=== PATIENT | female | born 1960 | race Caucasian/White ===

== ENCOUNTER → 2017-09-11 | Outpatient (CLI) | payer OTHER | LOC: M RAD 09:40 | DX: Z12.31 Encounter for screening mammogram for malignant neoplasm of breast (principal); Z78.0 Asymptomatic menopausal state | CPT/HCPCS: 77067 ==

== ENCOUNTER → 2017-10-01 | Outpatient (CLI) | payer OTHER | LOC: M RAD 12:47 | DX: Z12.2 Encounter for screening for malignant neoplasm of respiratory organs (principal); R91.8 Other nonspecific abnormal finding of lung field; F17.210 Nicotine dependence, cigarettes, uncomplicated | CPT/HCPCS: G0297 ==

== ENCOUNTER 2017-11-06 08:19 | Day surgery (SDC) | payer OTHER ==
[~2017-11-06 08:19] MED LIST: PROPOFOL 200 MG/20 ML VIAL As Ordered
[2017-11-06] MEDS: NS 1,000 ML IV (08:30)
== END 2017-11-06 10:22 | disposition home or self-care (01) ==
LOC: M OPP 08:19
DX: Z12.11 Encounter for screening for malignant neoplasm of colon (principal); K64.0 First degree hemorrhoids; J44.9 Chronic obstructive pulmonary disease, unspecified; R51 Headache; F17.210 Nicotine dependence, cigarettes, uncomplicated; Z79.899 Other long term (current) drug therapy; Z88.8 Allergy status to other drugs, medicaments and biological substances; Z78.0 Asymptomatic menopausal state; Z98.51 Tubal ligation status
CPT/HCPCS: G0121

== ENCOUNTER → 2018-05-27 | Outpatient (CLI) | payer OTHER | LOC: M RAD 08:58 | DX: J44.9 Chronic obstructive pulmonary disease, unspecified (principal); R91.1 Solitary pulmonary nodule | CPT/HCPCS: 71250 ==

== ENCOUNTER 2020-04-30 08:11 | Emergency (ER) | payer OTHER ==
[~2020-04-30] VITALS: Ht 165.1 cm; Wt 44.7 kg
[~2020-04-30 08:11] MED LIST changes: +MULT1TAB8 PO; -PROPOFOL 200 MG/20 ML VIAL As Ordered; +TIOT18INH INH; +TYLE500T78 PO
[2020-04-30] MEDS ORDERED: IBUP-1022 PO (08:22)
[2020-04-30] MEDS ORDERED: AUGM875T28 PO (08:59)
[2020-04-30] MEDS ORDERED: IBUP80TA PO (08:59)
[2020-04-30] MEDS ORDERED: KETOROLAC 30 MG/ML 1ML VIAL IM ONE (09:00)
[2020-04-30] MEDS ORDERED: BENZOCAINE 20% GEL 9GM TUBE (ANBESOL MAX STRENGTH) TOP ONE (09:00)
[2020-04-30 09:31] VITALS: BP 160/92
== END 2020-04-30 09:35 | disposition home or self-care (01) ==
LOC: M ED 08:11
DX: K02.9 Dental caries, unspecified (principal); K04.7 Periapical abscess without sinus; K03.81 Cracked tooth; F17.210 Nicotine dependence, cigarettes, uncomplicated; Z88.2 Allergy status to sulfonamides
CPT/HCPCS: 96372; 99283; J1885

== ENCOUNTER → 2021-01-19 | Outpatient (CLI) | payer OTHER ==
[~2021-01-19] MED LIST changes: +AUGM875T28 PO; +IBUP-1022 PO; +IBUP80TA PO
--- NOTE | 2021-01-19 11:20 | REP ---
INDICATION: LUNG CANCER SCREENING. COMPARISON: Comparison CT studies are dated May 27, 2018, October 01, 2017, and August 05, 2008.. TECHNIQUE: Dose reduction was performed utilizing CARE dose with automated adjustment of the kV and MAS according to patient size; iterative reconstruction, automated exposure control, as well as adaptive dose shielding. Helical scanning is acquired and 3 mm axial images are re-formatted at lung windows. FINDINGS: Thoracolumbar scoliosis is again noted. Emphysematous changes are noted with hyperinflation. There is a stable 5 mm pleural based nodule in the right lower lobe laterally on page 74 of 105. This is unchanged from the 2009 study. A small focal area of pleural thickening is seen in the major fissure on the right, page 62. This is also unchanged from the 2009 study. No new pulmonary nodule is seen. No mass or infiltrate is seen. There is no evidence of pleural effusion. Some vascular calcification is observed. No other bony abnormality is appreciated. IMPRESSION: Lung RADS category 1 findings. Repeat screening study suggested in 1 year. <Electronically signed by Alfredo Pulliam > 01/19/21 [id number]
== END ==
LOC: M RAD 10:36
PROVIDERS: ATTEND Student in an Organized Health Care Education/Training Program
DX: Z12.2 Encounter for screening for malignant neoplasm of respiratory organs (principal); R92.2 Inconclusive mammogram; R91.8 Other nonspecific abnormal finding of lung field; M41.85 Other forms of scoliosis, thoracolumbar region

== ENCOUNTER → 2021-01-19 | Outpatient (CLI) | payer OTHER ==
--- NOTE | 2021-01-19 12:24 | REPMRS ---
Patient History The patient states she has not had a clinical breast exam in over a year. Patient is postmenopausal. Family history of prostate cancer at age 60 in father. No Hormone Replacement Therapy Patient states no breast complaints today. Patient has signed MRS History Sheet. Digital Woman Screen Mammo: January 19, 2021 - Exam #: [id number] Bilateral CC and MLO view(s) were taken. Technologist: Maddy Sorto, Technologist Prior study comparison: September 11, 2017, bilateral digital mammo screening bilat, performed at [facility]. May 16, 2016, bilateral digital mammo screening bilat, performed at [facility]. FINDINGS: The breast tissue is heterogeneously dense. This may lower the sensitivity of mammography. Screening. Digital screening (2D) mammography was performed bilaterally in the CC and MLO projections. Additionally, breast tomosynthesis (3D mammography) was performed bilaterally in the CC and MLO projections. Todays exam was compared to the prior exam/exams. By history, the patient has no complaints of a palpable breast abnormality or other significant breast complaints. The breasts are unchanged in size and shape. Once again, dense heterogenous fibroglandular elements are seen bilaterally in a stable appearing pattern but to such a degree that the sensitivity of the mammogram in detecting cancer is decreased.There are no angelo-soft tissue densities or spiculated masses. There is no internal architectural distortion. There are no suspicious angelo-calcific clusters. Skin thickening or nipple retraction is not present. IMPRESSION: BI-RADS Category 2- Benign Findings. There is no evidence of malignant alteration of the breasts. Followup examination recommended in one year. The Volpara volumetric breast density category is C, the breasts are heterogenously dense which may obscure small masses. This mammogram was read with the assistance of garbs,an FDA approved computer aided detection system for mammography. The lifetime Tyrer-Cuzick score is 5.6 % Due to the density of the breasts or Tyrer Cuzick score of 20% or greater, MRI/whole breast screening ultrasound is warranted. Negative x-ray reports should not delay surgical consultation if a dominant or clinically suspicious mass is present. Not all breast cancers can be identified by mammography. Therefore, we recommend that you continue to perform regular breast self-examination and physical examination and then promptly contact your physician of any concerns or changes. Adenosis and dense breasts may obscure an underlying neoplasm. Assessment: BI-RADS/ACR category 2 mammogram. Benign Findings. Recommendation Routine screening mammogram of both breasts in 1 year. Electronically Signed By: Carlito Solo DO 01/19/21 [id number]
== END ==
LOC: M WHC 11:16
PROVIDERS: ATTEND Student in an Organized Health Care Education/Training Program
DX: Z12.31 Encounter for screening mammogram for malignant neoplasm of breast (principal); R92.2 Inconclusive mammogram

== ENCOUNTER → 2021-03-21 | Outpatient (CLI) | payer OTHER ==
--- NOTE | 2021-03-21 11:10 | PFTRPT ---
Height: 65.00 Inches Weight: 103.00 Lbs BSA: 1.49 Diagnosis: J43.1 DATE: 03/21/2021 ORDERING PHYSICIAN: ALINA Devries Pre and post bronchodilator studies have excellent technical quality. Forced vital capacity is normal. FEV1 is out of proportion. Obstructive index is therefore reduced. Expiratory limit of the flow-volume loop is consistent with limitation. No significant bronchodilator response is identified. Total lung capacity is normal. Residual volume is borderline for air trapping. Diffusing capacity although significantly reduced is appropriate for alveolar volume. Hemoglobin is acceptable at 13.1. Airway resistance is mildly elevated with concomitant decrease in airway conductance. IMPRESSION: At least moderate obstructive ventilatory impairment. Please correlate clinically. MTDD
== END ==
LOC: M CARPUL 09:42
PROVIDERS: ATTEND Physician Assistant
DX: J43.1 Panlobular emphysema (principal)

== ENCOUNTER 2021-04-07 08:33 | Emergency (ER) | payer OTHER ==
[~2021-04-07] VITALS: Ht 165.1 cm; Wt 46.3 kg
[2021-04-07] MEDS ORDERED: GABA-282 (08:50)
[2021-04-07] MEDS ORDERED: FLUT1BLS8 (08:50)
[2021-04-07] MEDS ORDERED: ACETAMINOPHEN 325 MG TAB PO ONE (11:55)
--- NOTE | 2021-04-07 12:22 | REP ---
INDICATION: headache, blurred vision. COMPARISON: None. TECHNIQUE: Helical scanning is acquired. 5 mm axial images were reformatted. Coronal MPR images were generated. FINDINGS: Preliminary digital port traffic manager radiograph is unremarkable. On bone window settings, there is minimal bed vascular calcification in the distal internal carotid arteries bilaterally. The visualized paranasal sinuses are clear. No intraorbital abnormality is appreciated. On soft tissue window settings, lateral, 3rd, and 4th ventricles are normal in size and position. No extra-axial fluid collection is seen. There is no evidence of intracranial hemorrhage or acute infarction. There are scattered foci of periventricular and subcortical white matter hypointensity which could be small-vessel changes. However, demyelinating disease is a possibility as well.. Consider MRI scanning. IMPRESSION: No evidence of acute hemorrhage, mass or acute infarction. A few scattered foci of a fairly prominent low-density are seen in the periventricular and subcortical white matter of the frontal and parietal regions bilaterally. Question demyelinating disease versus small vessel changes. Consider MRI scanning. <Electronically signed by Alfredo Pulliam > 04/07/21 [id number]
[2021-04-07 12:34] LABS: BASO # 0.1 10^3/uL (0.0-0.2); BASO % 0.6 % (0.0-1.0); EOS # 0.1 10^3/uL (0.0-0.5); EOS % 1.2 % (0.0-3.0); HEMATOCRIT 46.7 % (36.0-47.0); HEMOGLOBIN 15.1 g/dl (12.0-15.5); LYMPH # 2.5 10^3/uL (1.5-5.0); LYMPH % 29.4 % (24.0-44.0); MEAN CORPUSCULAR HEMOGLOBIN 28.8 pg (27.0-33.0); MEAN CORPUSCULAR HGB CONC 32.3 g/dl (32.0-36.5); MEAN CORPUSCULAR VOLUME 89.1 fl (80.0-96.0); MONO # 0.4 10^3/uL (0.0-0.8); MONO % 5.2 % (2.0-8.0); NEUTROPHILS # 5.4 10^3/uL (1.5-8.5); NEUTROPHILS % 63.4 % (36.0-66.0); PLATELET COUNT, AUTOMATED 332 10^3/uL (150-450); RED BLOOD COUNT 5.24 10^6/uL (4.00-5.40); WHITE BLOOD COUNT 8.5 10^3/uL (4.0-10.0)
[2021-04-07 13:00] LABS: ALT/SGPT 37 U/L (12-78); BILIRUBIN,TOTAL 0.4 MG/DL (0.2-1.0); BLOOD UREA NITROGEN 10 MG/DL (7-18); CARBON DIOXIDE LEVEL 32 MEQ/L (21-32); CHLORIDE LEVEL 105 MEQ/L (98-107); CREATININE FOR GFR 0.56 MG/DL (0.55-1.30); GLOMERULAR FILTRATION RATE > 60.0 (>45); GLUCOSE, FASTING 115 MG/DL (70-100); SODIUM LEVEL 141 MEQ/L (136-145); TOTAL PROTEIN 7.5 GM/DL (6.4-8.2)
[2021-04-07 13:05] LABS: ERYTHROCYTE SEDIMENTATION RATE 8 mm/hr (0-30)
[2021-04-07 13:18] LABS: RSV AMPLIFICATION NEGATIVE (NEGATIVE)
[2021-04-07] MEDS ORDERED: PROHANCE 279.3MG/ML 15ML VIAL As Ordered ONE (19:08)
--- NOTE | 2021-04-07 20:33 | REPVR ---
PROCEDURE INFORMATION: Exam: MR Head Without Contrast Exam date and time: 04/07/2021 7:35 PM Age: 60 years old Clinical indication: Other: Headache and blurry vision; Additional info: ? Demyelinating disease on CT head TECHNIQUE: Imaging protocol: MR of the head without contrast. COMPARISON: CT Head without contrast 04/07/2021 11:57 AM FINDINGS: Brain: Multiple foci of T2 lengthening are demonstrated in the subcortical, periventricular and centrum semiovale white matter consistent with age-related small vessel gliosis. Notably several foci oriented perpendicular to the long axis of the lateral ventricles, several several of which are visible on T1 weighted imaging, findings which may suggest Wood's fingers which can be seen in demyelinating disease. Cerebral ventricles: See "Brain" finding. Bones/joints: Unremarkable. Paranasal sinuses: Normal as visualized. No acute sinusitis. Mastoid air cells: Normal as visualized. No mastoid effusion. Orbital cavity: Unremarkable. Soft tissues: Unremarkable. IMPRESSION: Multiple foci of T2 lengthening are demonstrated in the subcortical, periventricular and centrum semiovale white matter consistent with age-related small vessel gliosis. Notably several foci oriented perpendicular to the long axis of the lateral ventricles, several several of which are visible on T1 weighted imaging, findings which may suggest Wood's fingers which can be seen in demyelinating disease. Electronically signed by: Yevgeniy Julio On 04/07/2021 20:33:24 PM
[2021-04-07 21:24] VITALS: BP 141/65
== END 2021-04-07 21:26 | disposition home or self-care (01) ==
LOC: M ED 08:33
DX: H53.9 Unspecified visual disturbance (principal); R93.0 Abnormal findings on diagnostic imaging of skull and head, not elsewhere classified; G37.9 Demyelinating disease of central nervous system, unspecified; J44.9 Chronic obstructive pulmonary disease, unspecified; H04.129 Dry eye syndrome of unspecified lacrimal gland; G62.9 Polyneuropathy, unspecified; F17.200 Nicotine dependence, unspecified, uncomplicated; Z79.899 Other long term (current) drug therapy; Z88.2 Allergy status to sulfonamides
CPT/HCPCS: 70450; 70551; 80053; 85025; 85652; 86140; 87631; 99283; A9576

== ENCOUNTER → 2022-02-13 | Outpatient (CLI) | payer OTHER ==
[~2022-02-13] MED LIST changes: +FLUT1BLS8; +GABA-282
== END ==
LOC: M RAD 09:54
PROVIDERS: ATTEND Student in an Organized Health Care Education/Training Program
DX: Z12.2 Encounter for screening for malignant neoplasm of respiratory organs (principal); Z87.891 Personal history of nicotine dependence; R91.1 Solitary pulmonary nodule; J43.9 Emphysema, unspecified

== ENCOUNTER → 2022-04-16 | Outpatient (CLI) | payer OTHER | LOC: M PLARAD 12:46 | PROVIDERS: ATTEND Physician Assistant | DX: R91.1 Solitary pulmonary nodule (principal) | CPT/HCPCS: 78815; A9552 ==

== ENCOUNTER → 2022-10-16 | Outpatient (CLI) | payer OTHER | LOC: M PLAIMG 07:39 | PROVIDERS: ATTEND Internal Medicine Pulmonary Disease | DX: R91.1 Solitary pulmonary nodule (principal); J44.9 Chronic obstructive pulmonary disease, unspecified ==

== ENCOUNTER → 2024-01-27 | Outpatient (CLI) | payer OTHER | LOC: M RAD 06:33 | PROVIDERS: ATTEND Physician Assistant | DX: Z12.2 Encounter for screening for malignant neoplasm of respiratory organs (principal); F17.218 Nicotine dependence, cigarettes, with other nicotine-induced disorders; I25.10 Atherosclerotic heart disease of native coronary artery without angina pectoris; R91.8 Other nonspecific abnormal finding of lung field; I70.0 Atherosclerosis of aorta ==

== ENCOUNTER → 2024-07-28 | Outpatient (CLI) | payer OTHER ==
[~2024-07-28] MED LIST changes: +E-Z-GAS II EFFERVESCENT PACKET (SODIUM BICARB./CITRIC ACID/SIMETHICONE) As Ordered ONE; +E-Z-HD 98% w/w 340GM SUSP BTL As Ordered ONE; +E-Z-PAQUE 96% w/w SUSP 176GM BTL As Ordered ONE; +GABA-1172; -GABA-282
== END ==
LOC: M RAD 07:49
PROVIDERS: ATTEND Internal Medicine Gastroenterology
DX: K50.118 Crohn's disease of large intestine with other complication (principal); R19.7 Diarrhea, unspecified; K21.9 Gastro-esophageal reflux disease without esophagitis; K57.10 Diverticulosis of small intestine without perforation or abscess without bleeding; R93.3 Abnormal findings on diagnostic imaging of other parts of digestive tract

== ENCOUNTER → 2025-02-04 | Outpatient (REF) | payer OTHER ==
[~2025-02-04] MED LIST changes: -E-Z-GAS II EFFERVESCENT PACKET (SODIUM BICARB./CITRIC ACID/SIMETHICONE) As Ordered ONE; -E-Z-HD 98% w/w 340GM SUSP BTL As Ordered ONE; -E-Z-PAQUE 96% w/w SUSP 176GM BTL As Ordered ONE
== END ==
LOC: M LAB REF 11:56
PROVIDERS: ATTEND Internal Medicine
DX: E11.9 Type 2 diabetes mellitus without complications (principal)

== ENCOUNTER → 2025-03-04 | Outpatient (CLI) | payer OTHER ==
[~2025-03-04] MED LIST changes: -IBUP-1022 PO; +IBUP600T42 PO
== END ==
LOC: M WHC 12:18
PROVIDERS: ATTEND Internal Medicine
DX: Z12.31 Encounter for screening mammogram for malignant neoplasm of breast (principal); M85.80 Other specified disorders of bone density and structure, unspecified site; R92.313 Mammographic fatty tissue density, bilateral breasts

== ENCOUNTER → 2025-03-04 | Outpatient (CLI) | payer OTHER | LOC: M RAD 13:20 | PROVIDERS: ATTEND Physician Assistant | DX: F17.218 Nicotine dependence, cigarettes, with other nicotine-induced disorders (principal); R91.1 Solitary pulmonary nodule; I73.9 Peripheral vascular disease, unspecified; Z12.31 Encounter for screening mammogram for malignant neoplasm of breast; M85.80 Other specified disorders of bone density and structure, unspecified site ==

== ENCOUNTER → 2025-03-04 | Outpatient (CLI) | payer OTHER | LOC: M RAD 13:24 | PROVIDERS: ATTEND Internal Medicine | DX: I73.9 Peripheral vascular disease, unspecified (principal) ==

== ENCOUNTER 2025-06-07 11:23 | Day surgery (SDC) | payer OTHER ==
[~2025-06-07] VITALS: Ht 165.1 cm; Wt 45.0 kg
[~2025-06-07 11:23] MED LIST changes: +ACET1TAB55 PO; +ALBU2.5V10 INH; +AMLO1TAB24 PO; +ATOR1TAB21 PO; +GABA-1172 PO; +JANU50TA22 PO; +OMEP1CAP73 PO; +TELM1TAB33 PO; +TREL1AER IN; +VENTAER INH
[2025-06-07] MEDS ORDERED: LIDOCAINE 2% 100 MG/5 ML SDV (FOR ANES.) As Ordered ONE (12:22)
[2025-06-07 13:03] VITALS: TEMP 97.6
[2025-06-07 13:31] VITALS: BP 133/64; O2SAT 98
== END 2025-06-07 13:34 | disposition home or self-care (01) ==
LOC: M OPP 11:23
PROVIDERS: ATTEND Surgery
DX: Z12.11 Encounter for screening for malignant neoplasm of colon (principal); D12.6 Benign neoplasm of colon, unspecified; K64.8 Other hemorrhoids; K64.4 Residual hemorrhoidal skin tags; J44.9 Chronic obstructive pulmonary disease, unspecified; F17.210 Nicotine dependence, cigarettes, uncomplicated; Z88.2 Allergy status to sulfonamides; Z79.51 Long term (current) use of inhaled steroids; Z79.899 Other long term (current) drug therapy